=== PATIENT | female | born 1970 | race Caucasian/White ===

== ENCOUNTER 2020-05-24 11:08 | Emergency (ER) | payer OTHER ==
[~2020-05-24] VITALS: Ht 160 cm; Wt 66.0 kg
--- NOTE | 2020-05-24 11:47 | PHYS DOC ---
Past History Past Medical History: Anxiety, Depression Past Surgical History: , Other Additional Past Surgical Histo: RIGHT FALLOPIAN TUBE REMOVED AFTER ECTOPIC Alcohol Use: Occasionally Adult General Chief Complaint Chief Complaint: ABNORMAL LABS HPI HPI Patient is a pleasant 49yo female presenting for anemia. She went to PCP office 4 days ago for evaluation of cervical lymph node and had labs drawn. These were finally processed today and she was found to have a Hgb 6.7. She was at work, asymptomatic when she received the phone call notifying her of this lab level and was advised to present immediately to local ER. She arrives in NAD, remains asymptomatic without lightheadedness, dizzy, CP, SHOB, AP, urinary symptoms. She is currently on her period, admits he has heavier periods but they have been "normal" in consistency and frequency. She also admits to having a colonoscopy ~5 years ago and was found to have diverticulosis, no other abnormalities noted. she admits history of anemia and has history of taking iron but "I stopped taking it because I don't like drinking orange juice that much". Has never been hospitalized for anemia, has never received a blood transfusion. She denies any other overt blood loss Review of Systems Review of Systems Fourteen body systems of review of systems have been reviewed. See HPI for pertinent positives and negative responses, other julio all other systems are negative, non-pertinent or non-contributory Allergies Allergies Allergies Coded Allergies Type Severity Reaction Last Updated Verified No Known Drug Allergies 05/24/20 No Physical Exam Physical Exam Constitutional: Well developed, well nourished, no acute distress, non-toxic appearance. HENT: Normocephalic, atraumatic, bilateral external ears normal, oropharynx moist, no oral exudates, nose normal. Eyes: PERRLA, EOMI, conjunctiva normal, no discharge. Neck: Normal range of motion, no tenderness, supple, no stridor. Cardiovascular: Heart rate regular per monitor Lungs & Thorax: No respiratory distress or accessory muscle use, bilateral chest rise Abdomen: Abdomen soft, non-tender, bowel sounds present in all quadrants, no guarding or rebound, nonacute abdomen. Skin: Warm, dry, no erythema, no rash. Back: No tenderness, no CVA tenderness. Extremities: No tenderness, no cyanosis, no clubbing, ROM intact, no edema. Neurologic: Alert and oriented X 3, grossly normal motor & sensory function, no focal deficits noted. Psychologic: Affect normal, judgement normal, mood normal. Current Patient Data Vital Signs Vital Signs Date Time Temp Pulse Resp B/P (MAP) Pulse Ox O2 Delivery O2 Flow Rate FiO2 05/24/20 11:25 98.1 56 20 121/48 (72) 99 Room Air Lab Results Laboratory Tests Test 05/24/20 11:50 05/24/20 12:04 White Blood Count 4.7 x10^3/uL (4.0-11.0) Red Blood Count 4.35 x10^6/uL (3.50-5.40) Hemoglobin 6.8 g/dL (12.0-15.5) Hematocrit 25.0 % (36.0-47.0) Mean Corpuscular Volume 58 fL (79-100) Mean Corpuscular Hemoglobin 16 pg (25-35) Mean Corpuscular Hemoglobin Concent 27 g/dL (31-37) Red Cell Distribution Width 19.5 % (11.5-14.5) Platelet Count 310 x10^3/uL (140-400) Neutrophils (%) (Auto) 43 % (31-73) Lymphocytes (%) (Auto) 42 % (24-48) Monocytes (%) (Auto) 9 % (0-9) Eosinophils (%) (Auto) 5 % (0-3) Basophils (%) (Auto) 1 % (0-3) Neutrophils # (Auto) 2.0 x10^3uL (1.8-7.7) Lymphocytes # (Auto) 2.0 x10^3/uL (1.0-4.8) Monocytes # (Auto) 0.4 x10^3/uL (0.0-1.1) Eosinophils # (Auto) 0.2 x10^3/uL (0.0-0.7) Basophils # (Auto) 0.1 x10^3/uL (0.0-0.2) Platelet Estimate Adequate (ADEQUATE) Hypochromasia Marked Anisocytosis Mod Microcytosis Mod Target Cells Occ Tear Drop Cells Occ Ovalocytes Occ Schistocytes Occ Bedside Urine HCG, Qualitative hcg negative (Negative) EKG EKG [] Radiology/Procedures Radiology/Procedures [] Heart Score HEART Score for Chest Pain: HEART Score for Chest Pain Response (Comments) Value History Slighlty/Non-Suspicious 0 Age < 45 0 Risk Factors 1 or 2 Risk Factors 1 Total 1 Risk Factors: Risk Factors: DM, Current or recent (<one month) smoker, HTN, HLP, family history of CAD, obesity. Risk Scores: Risk Factors: DM, Current or recent (<one month) smoker, HTN, HLP, family history of CAD, obesity. Course & Med Decision Making Course & Med Decision Making Pertinent Labs and Imaging studies reviewed. (See chart for details) Discussed findings of iron deficiency anemia with asymptomatic patient, likely from menstration vs diverticulosis Discussed utility of admitting to hospital for blood transfusion, given she is asymptomatic with Hgb barely below 7, hospitalist deferred and recommended patient receive IV iron transfusion while in ER and DC home with iron supplementation Patient amenable to this plan of care. She received iron transfusion without issue and was given new RX iron supplementation with further workup in outpatient setting advised. I advised need to follow-up with PCP in upcoming 72hr SRP discussed with good understanding, all questions and concerns addressed prior to ER departure Justin Disclaimer Justin Disclaimer This electronic medical record was generated, in whole or in part, using a voice recognition dictation system. Departure Departure: Impression: Primary Impression: Iron deficiency anemia due to chronic blood loss Disposition: DC HOME SELF CARE/HOMELESS Condition: STABLE Referrals: JUSTIN COE MD (PCP) Patient Instructions: Iron Deficiency Anemia Additional Instructions: You were seen for iron deficiency anemia. Your workup did showed you have a hemoglobin less than 7, 6.8 which was mildly improved from your outpatient laboratory draw. You have been asymptomatic, there is no overt blood loss. We discussed utility in admission for blood transfusion but joint decision was made to transfuse you with iron and discharge home with ongoing iron supplementation and continued outpatient follow-up with your primary care physician. We discussed utility in repeat colonoscopy etc. in outpatient setting. Please call your primary care physician immediately after ER departure today to review ER course and determine next steps in care. You should return to the ED if you develop headache, falls, syncope, chest pain, shortness of breath, fever, abnormal sweating, leg swelling, or any other new or concerning symptoms. Scripts Ferrous Sulfate (FERROUS SULFATE) 325 Mg Tablet 1 TAB PO BID for ANEMIA, #60 TAB 3 Refills Prov: ESTHER NARVAEZ DO 05/24/20 ESTHER NARVAEZ DO May 24, 2020 11:47
[2020-05-24 12:28] LABS: BASO # 0.1 x10^3/uL (0.0-0.2); BASO % 1 % (0-3); EOS # 0.2 x10^3/uL (0.0-0.7); EOS % 5 % (0-3); LYMPH % 42 % (24-48); MEAN CORPUSCULAR HEMOGLOBIN 16 pg (25-35); MEAN CORPUSCULAR HGB CONC 27 g/dL (31-37); MEAN CORPUSCULAR VOLUME 58 fL (79-100); MONO # 0.4 x10^3/uL (0.0-1.1); MONO % 9 % (0-9); NEUT % 43 % (31-73); PLATELET COUNT 310 x10^3/uL (140-400); RED BLOOD COUNT 4.35 x10^6/uL (3.50-5.40); RED CELL DISTRIBUTION WIDTH 19.5 % (11.5-14.5); WHITE BLOOD COUNT 4.7 x10^3/uL (4.0-11.0)
[2020-05-24 12:30] LABS: HEMOGLOBIN 6.8 g/dL (12.0-15.5)
[2020-05-24] MEDS ORDERED: IRON SUCROSE COMPLEX 400 MG in IV NORMAL SALINE 250ML 250 ML IV ONE (14:00)
[2020-05-24 14:05] LABS: ANISOCYTOSIS MOD; HYPOCHROMIA MARKED; MICROCYTOSIS MOD; OVALOCYTES OCC; PLT ESTIMATE ADEQUATE (ADEQUATE); SCHISTOCYTES OCC; TARGET CELLS OCC; TEAR DROP CELLS OCC
[2020-05-24] MEDS ORDERED: FERUMOXYTOL for NON-DIALYSIS 510 MG in IV NORMAL SALINE 100ML 100 ML IV ONE (14:45)
[2020-05-24] MEDS ORDERED: FERR325T14 PO (14:46)
[2020-05-24 15:35] VITALS: BP 98/59
== END 2020-05-24 15:40 | disposition home or self-care (01) ==
LOC: ER 11:08
DX: D50.0 Iron deficiency anemia secondary to blood loss (chronic) (principal); Z98.890 Other specified postprocedural states
CPT/HCPCS: 36415; 81025; 85025; 86850; 86900; 86901; 96365; 99285; Q0138

== ENCOUNTER 2020-10-09 10:26 | Emergency (ER) | payer OTHER ==
[~2020-10-09] VITALS: Ht 160 cm; Wt 68.2 kg
[~2020-10-09 10:26] MED LIST: FERR325T14 PO
[2020-10-09] MEDS ORDERED: ALPRAZolam 0.25 MG TABLET PO ONE (11:15)
--- NOTE | 2020-10-09 11:31 | RAD ---
EXAM: PA and Lateral Views of the Chest DATE: 10/09/2020 11:07 AM INDICATION: left arm numb COMPARISON: No Prior FINDINGS: The heart is not enlarged. Mediastinal and hilar contours are normal. No focal parenchymal airspace opacity. No pleural effusion or pneumothorax. IMPRESSION: 1. No radiographic evidence for acute cardiopulmonary process. Electronically signed by: Jordan Mcneal MD (10/09/2020 11:28 AM) [facility]
--- NOTE | 2020-10-09 11:36 | RAD ---
CT Head W/O Contrast: History: Reason: LEFT ARM NUMB / Spl. Instructions: / History: Comparison: none Axial images were obtained without contrast. The flowers and white matter appears normal and symmetrical for the patients age. There is no mass effe ct, extraaxial fluid collections or hydrocephalus. There is no gross bleed. There is no focal loss of flowers-white matter distinction to suggest acute ischemia, i.e. stroke. Impression: No acute findings. PQRS Compliance Statement: One or more of the following individualized dose reduction techniques were utilized for this examinat ion: 1. Automated exposure control 2. Adjustment of the mA and/or kV according to patient size 3. Use of iterative reconstruction technique Electronically signed by: Juan Carlos Santillan III, MD (10/09/2020 11:33 AM) [facility]
[2020-10-09 11:42] LABS: BASO # 0.1 x10^3/uL (0.0-0.2); BASO % 1 % (0-3); EOS # 0.3 x10^3/uL (0.0-0.7); EOS % 5 % (0-3); HEMATOCRIT 40.5 % (36.0-47.0); HEMOGLOBIN 13.6 g/dL (12.0-15.5); LYMPH # 2.1 x10^3/uL (1.0-4.8); LYMPH % 34 % (24-48); MEAN CORPUSCULAR HEMOGLOBIN 31 pg (25-35); MEAN CORPUSCULAR HGB CONC 34 g/dL (31-37); MEAN CORPUSCULAR VOLUME 94 fL (79-100); MONO # 0.5 x10^3/uL (0.0-1.1); MONO % 8 % (0-9); NEUT # 3.2 x10^3uL (1.8-7.7); NEUT % 52 % (31-73); PLATELET COUNT 223 x10^3/uL (140-400); RED BLOOD COUNT 4.33 x10^6/uL (3.50-5.40); RED CELL DISTRIBUTION WIDTH 14.2 % (11.5-14.5); WHITE BLOOD COUNT 6.2 x10^3/uL (4.0-11.0)
--- NOTE | 2020-10-09 11:58 | EKG ---
[address] [address] Test Date: 2020-10-09 Test Time: 11:08:34 Pat Name: SANKET MCKOY Department: Room: Gender: F [employer]ing [employer] Operator: AMY : 1970 Requested By: ARISTIDES NIXON Order Number: [id number] Reading MD: Measurements Intervals [place] Rate: 50 P: -28 NE: 128 QRS: 35 QRSD: 78 T: 29 QT: 434 QTc: 398 Interpretive Statements SINUS RHYTHM NORMAL ECG RI6.02 No previous ECG available for comparison
[2020-10-09 12:14] LABS: CALCIUM 8.5 mg/dL (8.5-10.1); GFR 58.7; POTASSIUM 4.4 mmol/L (3.5-5.1)
[2020-10-09 12:19] LABS: ALBUMIN 3.6 g/dL (3.4-5.0); ALBUMIN/GLOBULIN RATIO 1.4 (1.0-1.7); TOTAL BILIRUBIN 1.2 mg/dL (0.2-1.0); TOTAL PROTEIN 6.1 g/dL (6.4-8.2)
--- NOTE | 2020-10-09 12:37 | PHYS DOC ---
Past History Past Medical History: Anxiety, Depression Past Surgical History: , Gastric Bypass, Other Additional Past Surgical Histo: RIGHT FALLOPIAN TUBE REMOVED AFTER ECTOPIC Alcohol Use: Occasionally General Adult EDM: Chief Complaint: WEAKNESS/GENERALIZED HPI: HPI: 50-year-old female past medical history significant for anxiety and iron deficiency anemia presents the ED with complaints of States her symptoms usually occur when she is stressed out and anxious. Has been having hot and cold spells, but these have been intermittent ongoing for months. Is currently on her menses. Came to the ED because she was worried if symptoms related to her heart. Has no associated shortness of breath, nausea, vomiting, diaphoresis, syncope, scapular pain, blurry vision, motor deficits or speech changes. Patient with no history of Covid and is vaccinated for Covid. Patient is not a tobacco smoker, does not use cocaine or methamphetamines. Only medications are Prozac and iron. Had labs drawn within the past 2 months that showed normal thyroid. Mother with history of triple bypass in her late 60s. No personal or family history of AAA, AAD, CTD ([place] or marfans), cardiac arrhythmias (need for AICD), sudden or unexplainable (under 50 years of age or with exertion), or clotting disorders. Denies any history of head or nec k trauma. No history of syncope. Review of Systems: Review of Systems: Constitutional: Denies fever or chills Eyes: Denies change in visual acuity HENT: Denies nasal congestion or sore throat Respiratory: Denies cough or shortness of breath Cardiovascular: Denies chest pain or edema GI: Denies abdominal pain, nausea, vomiting, bloody stools or diarrhea : Denies dysuria Musculoskeletal: Denies back pain or joint pain Integument: Denies rash Neurologic: Denies headache, focal weakness or sensory changes Endocrine: Denies polyuria or polydipsia Lymphatic: Denies swollen glands Psychiatric: Denies depression or anxiety Current Medications: Current Meds: Current Medications Medications (Trade) Dose Ordered Sig/Eden Start Time Stop Time Status Last Admin Dose Admin Alprazolam (Xanax) 0.25 mg 1X ONCE 10/09/20 11:15 10/09/20 11:21 DC 10/09/20 11:15 0.25 MG Allergies: Allergies: Allergies Coded Allergies Type Severity Reaction Last Updated Verified No Known Drug Allergies 05/24/20 No Physical Exam: PE: Constitutional: Well developed, well nourished, no acute distress, non-toxic appearance. HENT: Normocephalic, atraumatic, Eyes: EOMI, conjunctiva normal, no discharge. Neck: Normal range of motion, supple, Cardiovascular: S1/2 present, regular rhythm Lungs & Thorax: Speaking in full sentences, bilateral equal chest rise, no tachypnea or increased work of breathing Abdomen: soft, no tenderness, Skin: Warm, dry, no erythema, no rash. [] Back: No tenderness, no CVA tenderness. [] Extremities: No tenderness, no cyanosis, no lower extremity edema Neurologic: Alert and oriented X 3, normal motor function, normal sensory function, no focal deficits noted. [] Psychologic: Affect normal, judgement normal, mood normal. [] Current Patient Data: Labs: Laboratory Tests Test 10/09/20 11:27 White Blood Count 6.2 x10^3/uL (4.0-11.0) Red Blood Count 4.33 x10^6/uL (3.50-5.40) Hemoglobin 13.6 g/dL (12.0-15.5) Hematocrit 40.5 % (36.0-47.0) Mean Corpuscular Volume 94 fL (79-100) Mean Corpuscular Hemoglobin 31 pg (25-35) Mean Corpuscular Hemoglobin Concent 34 g/dL (31-37) Red Cell Distribution Width 14.2 % (11.5-14.5) Platelet Count 223 x10^3/uL (140-400) Neutrophils (%) (Auto) 52 % (31-73) Lymphocytes (%) (Auto) 34 % (24-48) Monocytes (%) (Auto) 8 % (0-9) Eosinophils (%) (Auto) 5 % (0-3) H Basophils (%) (Auto) 1 % (0-3) Neutrophils # (Auto) 3.2 x10^3uL (1.8-7.7) Lymphocytes # (Auto) 2.1 x10^3/uL (1.0-4.8) Monocytes # (Auto) 0.5 x10^3/uL (0.0-1.1) Eosinophils # (Auto) 0.3 x10^3/uL (0.0-0.7) Basophils # (Auto) 0.1 x10^3/uL (0.0-0.2) Sodium Level 143 mmol/L (136-145) Potassium Level 4.4 mmol/L (3.5-5.1) Chloride Level 111 mmol/L (98-107) H Carbon Dioxide Level 21 mmol/L (21-32) Anion Gap 11 (6-14) Blood Urea Nitrogen 19 mg/dL (7-20) Creatinine 1.0 mg/dL (0.6-1.0) Estimated GFR (Cockcroft-Gault) 58.7 BUN/Creatinine Ratio 19 (6-20) Glucose Level 95 mg/dL (70-99) Calcium Level 8.5 mg/dL (8.5-10.1) Total Bilirubin 1.2 mg/dL (0.2-1.0) H Aspartate Amino Transferase (AST) 21 U/L (15-37) Alanine Aminotransferase (ALT) 32 U/L (14-59) Alkaline Phosphatase 66 U/L (46-116) Troponin I Quantitative < 0.017 ng/mL (0-0.055) Total Protein 6.1 g/dL (6.4-8.2) L Albumin 3.6 g/dL (3.4-5.0) Albumin/Globulin Ratio 1.4 (1.0-1.7) Vital Signs: Vital Signs Date Time Temp Pulse Resp B/P (MAP) Pulse Ox O2 Delivery O2 Flow Rate FiO2 10/09/20 10:34 98.1 54 16 120/73 (89) 98 Room Air EKG: EKG: Sinus bradycardia 50 bpm, no axis deviation, no T wave inversions, no ST elevations or ST depressions, no active chest pain or upper back pain Radiology/Procedures: Radiology/Procedures: IMAGING REPORT Signed PATIENT: SANKET MCKOY ACCOUNT: [id number] : 1970 LOCATION: ER AGE: 50 SEX: F EXAM STATUS: REG ER ORD. PHYSICIAN: ARISTIDES NIXON DO REASON: LEFT ARM NUMB PROCEDURE: CT HEAD WO CONTRAST CT Head W/O Contrast: History: Reason: LEFT ARM NUMB / Spl. Instructions: / History: Comparison: none Axial images were obtained without contrast. The flowers and white matter appears normal and symmetrical for the patients age. There is no mass effect, extraaxial fluid collections or hydrocephalus. There is no gross bleed. There is no focal loss of flowers-white matter distinction to suggest acute ischemia, i.e. stroke. Impression: No acute findings. PQRS Compliance Statement: One or more of the following individualized dose reduction techniques were utilized for this examination: 1. Automated exposure control 2. Adjustment of the mA and/or kV according to patient size 3. Use of iterative reconstruction technique Electronically signed by: Tatianna Buchanan III, MD (10/09/2020 11:33 AM) [facility] DICTATED AND SIGNED BY: TATIANNA BUCHANAN III, MD DATE: 10/09/20 1132 CC: JUSTIN COE MD; ARISTIDES NIXON DO ~MTH0 0 IMAGING REPORT Signed PATIENT: SANKET MCKOY ACCOUNT: [id number] : 1970 LOCATION: ER AGE: 50 SEX: F EXAM STATUS: REG ER ORD. PHYSICIAN: ARISTIDES NIXON DO REASON: left arm numb PROCEDURE: CHEST PA & LATERAL EXAM: PA and Lateral Views of the Chest DATE: 10/09/2020 11:07 AM INDICATION: left arm numb COMPARISON: No Prior FINDINGS: The heart is not enlarged. Mediastinal and hilar contours are normal. No focal parenchymal airspace opacity. No pleural effusion or pneumothorax. IMPRESSION: 1. No radiographic evidence for acute cardiopulmonary process. Electronically signed by: Jordan Wade MD (10/09/2020 11:28 AM) [facility] DICTATED AND SIGNED BY: JORDAN WADE MD DATE: 10/09/20 1127 CC: JUSTIN COE MD; ARISTIDES NIXON DO ~MTH0 0 Heart Score: C/O Chest Pain: No HEART Score for Chest Pain: HEART Score for Chest Pain Response (Comments) Value History Slighlty/Non-Suspicious 0 Age >45 - < 65 1 Risk Factors 1 or 2 Risk Factors 1 Troponin < Normal Limit 0 Total 2 Risk Factors: Risk Factors: DM, Current or recent (<one month) smoker, HTN, HLP, family history of CAD, obesity. Risk Scores: Score 0 - 3: 2.5% MACE over next 6 weeks - Discharge Home Score 4 - 6: 20.3% MACE over next 6 weeks - Admit for Clinical Observation Score 7 - 10: 72.7% MACE over next 6 weeks - Early Invasive Strategies Course & Med Decision Making: Course & Med Decision Making Pertinent Labs and Imaging studies reviewed. (See chart for details) Atypical chest pain, CVA and aortic dissection considered/on differential, low suspicion. Patient is currently on her menses thus UA not obtained. Chest x- ray with normal mediastinum. Patient with normal blood pressure. Patient is low risk for heart score. Patient with asymptomatic bradycardia. BP in right arm 101/62 and left arm 114/71, HR in 60's for both arms. Will discharge home with strict ED return precautions were given for chest/abdominal/back pressure tightness with associated nausea, vomiting, dyspnea, diaphoresis, syncope, neurologic deficits or severe pain. Encouraged urgent outpatient follow-up with PMD and cardiology for outpatient nonemergent evaluation. Life-threatening processes were considered but are low suspicion at this time, given history, physical exam and ED workup. Pt was educated on all prescription medications and adverse effects. All patient's questions were answered and pt was stable at time of discharge. Life/limb-threatening differential includes but is not limited to, acute myocardial infarction, aortic dissection, congestive heart failure, esophageal injury including rupture, surgical abdomen, arrhythmia, cardiomyopathy, myocarditis, pericarditis, peptic ulcer disease, pneumomediastinum, pneumonia, pneumothorax, pulmonary embolus, unstable angina, rib fracture, contusion, pericardial tamponade or effusion, traumatic injury including mediastinal hemorrhage or hematoma, or pulmonary contusion. I spoken with the patient and her caregivers. I explained the patient's condition, diagnoses and treatment plan based on the information available to me at this time. I have answered the patient and her caregiver's questions and addressed any concerns. The patient and her caregivers have a good understanding of patient's diagnosis, condition and treatment plan as can be expected at this point. Vital signs have been stable. Patient's condition is stable and appropriate for discharge from the emergency department. Patient will pursue further outpatient evaluation with primary care physician or other designated or consulting physician as outlined in the discharge instructions. The patient and/or caregivers are agreeable to this plan of care and follow-up instructions have been explained in detail. The patient and/or caregivers have received these instructions in written form and have expressed an understanding of the discharge instructions. The patient and/or caregivers are aware that any significant change of condition or worsening of symptoms should prompt immediate return to this or the closest emergency department or call to [id number] Disclaimer: Justin Disclaimer: This electronic medical record was generated, in whole or in part, using a voice recognition dictation system. Departure Departure: Impression: Primary Impression: Left arm pain Additional Impression: Numbness of left jaw Disposition: HOME / SELF CARE / HOMELESS Condition: STABLE Referrals: JUSTIN COE MD (PCP) in 1 week for re-evaluation Hemoglobin today was 13.6 Patient Instructions: Chest Pain (Nonspecific), Radicular Pain Additional Instructions: FOLLOW UP WITH CARDIOLOGY: For nonemergent outpatient evaluation [facility] [id number] [address] [place] [facility] [address] [address] EMERGENCY DEPARTMENT GENERAL DISCHARGE INSTRUCTIONS Thank you for coming to [facility] (ED) today and trusting us with you care. We trust that you had a positivie experience in our Emergency Department. If you wish to speak to the department management, you may call the director at [phone]. YOUR FOLLOW UP INSTRUCTIONS ARE FOLLOWS: 1. Do you have a private Doctor? If you do not have a private doctor, please ask for a resource list of physicians or clinics that may be able to assist you with follow up care. 2. The Emergency Physician has interpreted your x-rays. The X-Ray specialist will also review them. If there is a change in the findings, you will be notified in 48 hours when at all possible. 3. A lab test or culture has been done, your results will be reviewed and you will be notified if you need a change in treatment. ADDITIONAL INSTRUCTIONS AND INFORMATION: 1. Your care today has been supervised by a physician who is specially trained in emergency care. Many problems require more than one evaluation for a complete diagnosis and treatment. We recommend that you schedule your follow up appointment as recommended to ensure complete treatment of you illness or injury. If you are unable to obtain follow up care and continue to have a problem, or if your condition worsens, we recommend that you return to the ED. 2. We are not able to safely determine your condition over the phone nor are we able to give sound medical advice over the phone. For these safety reasons, if you call for medical advice we will ask you to come to the ED for further evaluation. 3. If you have any questions regarding these discharge instructions please call the ED at [phone]. SAFETY INFORMATION: In the interest of safety, wellness, and injury prevention; we encourage you to wear your sealbelt, if you smoke; quite smoking, and we encourage family to use a protective helmet for bicycling and other sporting events that present an increased risk for head injury. IF YOUR SYMPTOMS WORSEN OR NEW SYMPTOMS DEVELOP, OR YOU HAVE CONCERNS ABOUT YOUR CONDITION; OR IF YOUR CONDITION WORSENS WHILE YOU ARE WAITING FOR YOUR FOLLOW UP APPOINTMENT; EITHER CONTACT YOUR PRIMARY CARE DOCTOR, THE PHYSICIAN WHOSE NAME AND NUMBER YOU WERE GIVEN, OR RETURN TO THE ED IMMEDIATELY. ARISTIDES NIXON DO October 09, 2020 12:37
[2020-10-09 14:04] VITALS: BP 102/64
== END 2020-10-09 14:54 | disposition home or self-care (01) ==
LOC: ER 10:26
DX: M79.602 Pain in left arm (principal); R20.0 Anesthesia of skin; F41.9 Anxiety disorder, unspecified; F32.9 Major depressive disorder, single episode, unspecified; Z86.2 Personal history of diseases of the blood and blood-forming organs and certain disorders involving the immune mechanism; Z98.890 Other specified postprocedural states; Z98.84 Bariatric surgery status
CPT/HCPCS: 36415; 70450; 71046; 80053; 84484; 85025; 93005; 99285